=== PATIENT | female | born 1955 | race Caucasian/White ===

== ENCOUNTER → 2019-12-12 | Outpatient (CLI) | payer OTHER ==
[~2019-12-12] MED LIST: HCTZ 25MG TAB25 MG PO; NORCO 325 MG-51 TAB PO; NORVASC 5MG5 MG/TAB PO; PREVACID 15MG15 M1 PO; PRINIVIL20 MG PO; SYNTHROID0.05 MG/TA PO
== END ==
LOC: MC.RAD 11-10 15:30
DX: Z12.31 Encounter for screening mammogram for malignant neoplasm of breast (principal)

== ENCOUNTER 2020-01-03 23:51 | Observation (INO) | payer OTHER, MEDICARE ==
[~2020-01-03] VITALS: Ht 162.6 cm; Wt 115.5 kg
[2020-01-04] VITALS (13 sets, daily range): BP systolic 100–144; BP diastolic 56–86; PULSE 59–86; TEMP 97.5–99.1
[2020-01-04] MEDS ORDERED: NORVASC 5MG5 MG/TAB PO
[2020-01-04] MEDS ORDERED: PRINIVIL20 MG PO
[2020-01-04] MEDS ORDERED: HCTZ 25MG TAB25 MG PO (00:01)
[2020-01-04] MEDS ORDERED: PREVACID 15MG15 M1 PO (00:01)
[2020-01-04] MEDS ORDERED: SYNTHROID0.05 MG/TA PO (00:01)
[2020-01-04 00:25] LABS: BASO # 0.1 (0.0-0.2); BASO % 0.7 % (0.0-2.0); EOS # 0.3 (0.0-0.7); EOS % 2.8 % (0-4.0); GRAN # 6.6 (1.4-6.5); GRAN % 64.4 % (42.2-75.2); HEMATOCRIT 43.9 % (37.0-47.0); LYMPH # 2.7 (1.2-3.4); LYMPH % 26.4 % (20.0-51.0); MEAN CELL VOLUME 95 fl (80.0-100.0); MEAN CORPUSCULAR HEMOGLOBIN 30 pg (27.0-31.0); MEAN CORPUSCULAR HGB CONC 32 g/dl (33.0-37.0); MEAN PLATELET VOLUME 11.9 fl (7.4-10.4); MONO # 0.6 (0.1-0.6); MONO % 5.4 % (1.7-9.3); PLATELET COUNT 252 K/mm3 (130-400); RED BLOOD COUNT 4.64 M/mm3 (4.10-5.30); REDCELL DISTRIBUTION WIDTH-CV 13.7 % (11.5-14.5)
[2020-01-04 00:36] LABS: ALANINE AMINOTRANSFERASE 24 U/L (4-34); ALBUMIN 4.4 gm/dL (3.5-5.0); ALKALINE PHOSPHATASE 119 U/L (50-136); ANION GAP 7 mmol/L (7-16); AST,SGOT 23 U/L (15-37); BILIRUBIN,TOTAL 0.4 mg/dL (0.0-1.0); BLOOD UREA NITROGEN 20 mg/dL (7-17); C-REACTIVE PROTEIN 1.7 mg/dL (0.0-0.9); CALCIUM 9.5 mg/dL (8.4-10.2); CARBON DIOXIDE 30 mmol/L (22-30); CHLORIDE 100 mmol/L (98-107); CREATININE, serum 0.84 (0.52-1.25); GLUCOSE 139 mg/dL (74-106); LIPASE 110 U/L (23-300); SODIUM 136 mmol/L (137-145); TOTAL PROTEIN 7.7 gm/dL (6.4-8.2)
[2020-01-04 00:47] LABS: TROPONIN-I < 0.012 ng/mL (0.000-0.035)
[2020-01-04 00:56] LABS: INR 0.9 (0.8-3.0); PROTHROMBIN TIME 10.3 SECONDS (9.7-12.8)
--- NOTE | 2020-01-04 07:32 | NUR ---
Patient resting in bed. rounded. Plans for OR this afternoon. Nausea & pain medication per request. Will monitor.
--- NOTE | 2020-01-04 09:45 | NUR ---
Patient pain better managed at this time. Belting Cutter assisted with hygiene. COnsent obtained. Davide lindsay.
--- NOTE | 2020-01-04 10:51 | NUR ---
MIR met with the patient to discuss discharge plan. The patient lives in [place] with her life partner, Dieudonne Tesfaye (ph#[phone]). She reports independence with ADLs and does not have any DME. The patient's PCP is Dr. Nuun Cobb and she receives her medications at [facility]. She reports no difficulties obtaining her meds. The patient does not have advanced directives completed. She states that she already has a DPOA-HC form. The patient has two children: Bisi and Denzel. The patient plans to return home with her life partner upon discharge. No additional needs at this time.
--- NOTE | 2020-01-04 14:55 | NUR ---
Patient to Or with Raymon perkins, she had been pre medicated with pre op medication per anethesia.
--- NOTE | 2020-01-04 17:34 | NUR ---
Report from Funmi in the PACU. Patient received post op. Patient very sleepy. Vitals stable on O2. Lap site x3 Bandaids intact. IVf resumed. Scds ble. Will closely monitor.
--- NOTE | 2020-01-04 19:41 | NUR ---
Patient siting up trying to eat dinner. denies nausea at this time. Was up to the bathroom & voided. Vitals stable, but still requires oxygen. Report to Elizabeth NI
--- NOTE | 2020-01-04 22:31 | NUR ---
PATIENT DOING WELL TONIGHT. DENIES PAIN OR NAUSEA AT THIS TIME. ATE HALF OF HER DINNER. X3 ABD LAP SITES CDI WITH BANDAIDS. VSS WITH O2. IVF INFUSING INTO L AC IV WITHOUT ISSUE. NO FURTHER NEEDS AT THIS TIME. WILL CONTINUE TO MONITOR.
[2020-01-05 03:29] VITALS: BP 114/53; PULSE 64; TEMP 98.5
[2020-01-05 08:23] VITALS: BP 109/59; PULSE 81; TEMP 98
[2020-01-05] MEDS ORDERED: NORCO 325 MG-51 TAB PO (08:27)
--- NOTE | 2020-01-05 10:00 | NUR ---
Patient is discharging home. Discharge instructions discussed with patient. No questions verbalized. INT discontinued. Explained the office will call with her follow up appointment. She has a prescription for norco to take to the pharmacy to get fille. No questions verbalized. Copies of discharge instructions sent with patient. All belongings packed up and sent with patient. Patient walked out with Matthias NI.
== END 2020-01-05 10:18 | disposition home or self-care (01) ==
LOC: COL.ER 23:51 → SURG 01-04 02:27
PROVIDERS: Emergency Medicine; ADMIT Surgery
DX: K80.10 Calculus of gallbladder with chronic cholecystitis without obstruction (principal); K44.9 Diaphragmatic hernia without obstruction or gangrene; I10 Essential (primary) hypertension; E03.9 Hypothyroidism, unspecified; Z90.710 Acquired absence of both cervix and uterus; Z88.8 Allergy status to other drugs, medicaments and biological substances; Z79.899 Other long term (current) drug therapy
CPT/HCPCS: G0378; J0330; J2270; J2405; J2543; J2704; J2765; J3010; J7030; J7120; Q9967

== ENCOUNTER 2020-09-07 15:13 | Outpatient (CLI) | payer MEDICARE ==
[~2020-09-07] VITALS: Ht 162.6 cm; Wt 117.4 kg
[2020-09-07 15:58] VITALS: BP 138/83; PULSE 76; TEMP 97.8
== END 2020-09-07 16:31 | disposition home or self-care (01) ==
LOC: EUO 15:13
DX: M81.0 Age-related osteoporosis without current pathological fracture (principal)
CPT/HCPCS: J0897

== ENCOUNTER 2021-03-20 09:35 | Outpatient (CLI) | payer MEDICARE ==
[~2021-03-20] VITALS: Ht 162.6 cm; Wt 112.0 kg
[2021-03-20 09:53] VITALS: BP 139/82; PULSE 66; TEMP 98
== END 2021-03-20 10:30 | disposition home or self-care (01) ==
LOC: EUO 09:35
DX: M81.0 Age-related osteoporosis without current pathological fracture (principal)
CPT/HCPCS: J0897

== ENCOUNTER → 2021-04-23 | Outpatient (CLI) | payer MEDICARE | LOC: COL.VAS 13:11 | DX: I65.23 Occlusion and stenosis of bilateral carotid arteries (principal); I70.90 Unspecified atherosclerosis ==

== ENCOUNTER 2021-10-02 13:29 | Outpatient (CLI) | payer MEDICARE ==
[~2021-10-02] VITALS: Ht 162.6 cm; Wt 113.1 kg
[2021-10-02 13:57] VITALS: BP 126/83; PULSE 78; TEMP 98.6
== END 2021-10-02 16:01 ==
LOC: EUO 13:29
DX: M81.0 Age-related osteoporosis without current pathological fracture (principal)
CPT/HCPCS: J0897

== ENCOUNTER 2022-03-25 12:23 | Emergency (ER) | payer MEDICARE ==
[~2022-03-25] VITALS: Ht 165.1 cm; Wt 108.6 kg
[~2022-03-25 12:23] MED LIST changes: -SYNTHROID0.05 MG/TA PO; +SYNTHROID0.075 MG/T PO
[2022-03-25 12:38] VITALS: TEMP 98.3
[2022-03-25 13:06] LABS: COLLECTION METHOD CLEAN CATCH
[2022-03-25 13:10] LABS: BASO % 0.3 % (0.0-2.0); EOS # 0.1 K/mm3 (0.0-0.7); EOS % 0.8 % (0.0-4.0); GRAN # 9.8 K/mm3 (1.4-6.5); GRAN % 80.5 % (42.2-75.2); HEMATOCRIT 44.9 % (37.0-47.0); LYMPH # 1.5 K/mm3 (1.2-3.4); LYMPH % 12.1 % (20.0-51.0); MEAN CELL VOLUME 91 fl (80.0-100.0); MEAN CORPUSCULAR HEMOGLOBIN 30 pg (27-31); MEAN CORPUSCULAR HGB CONC 33 g/dl (33.0-37.0); MEAN PLATELET VOLUME 11.8 fl (7.4-10.4); MONO # 0.7 K/mm3 (0.1-0.6); PLATELET COUNT 244 K/mm3 (130-400); RED BLOOD COUNT 4.95 M/mm3 (4.10-5.30); REDCELL DISTRIBUTION WIDTH-CV 13.3 % (11.5-14.5)
[2022-03-25 13:14] LABS: SQUAMOUS EPITHELIAL 0-2 /hpf (0-10); URINE BACTERIA Rare /hpf (NONE SEEN); URINE RBC None Seen /hpf (0-2)
[2022-03-25 13:17] LABS: PH 6 (5-8); URINE APPEARANCE Clear (CLEAR/HAZY); URINE COLOR Yellow (YELLOW); URINE GLUCOSE Negative (NEGATIVE); URINE PROTEIN(semi-quant) Negative (NEGATIVE); URINE UROBILINOGEN Negative (NEGATIVE)
[2022-03-25 13:18] LABS: URINE BLOOD Negative (NEGATIVE); URINE KETONE Trace (NEGATIVE); URINE NITRATE Negative (NEGATIVE)
[2022-03-25 13:26] LABS: BILIRUBIN,TOTAL 0.7 mg/dL (0.2-1.2); C-REACTIVE PROTEIN 6.54 mg/dL (0.00-0.50); CREATININE, serum 0.81 mg/dL (0.57-1.11); POTASSIUM 3.7 mmol/L (3.5-4.5); TOTAL PROTEIN 7.8 gm/dL (6.2-8.1)
[2022-03-25 14:30] VITALS: BP 143/98
[2022-03-25] MEDS ORDERED: FLAGYL500 MG PO (15:10)
[2022-03-25] MEDS ORDERED: CIPRO 500MG TA500 MG PO (15:10)
[2022-03-25] MEDS ORDERED: NORCO 325 MG-51 TAB PO (15:22)
[2022-03-25 15:23] VITALS: PULSE 93
== END 2022-03-25 15:25 | disposition home or self-care (01) ==
LOC: COL.ER 12:23
PROVIDERS: Nurse Practitioner
DX: K57.32 Diverticulitis of large intestine without perforation or abscess without bleeding (principal); Z87.19 Personal history of other diseases of the digestive system
CPT/HCPCS: J2270; J2405; J7030; Q9967

== ENCOUNTER 2022-04-02 13:08 | Outpatient (CLI) | payer MEDICARE ==
[~2022-04-02] VITALS: Ht 165.1 cm; Wt 109.2 kg
[~2022-04-02 13:08] MED LIST changes: +CIPRO 500MG TA500 MG PO; +FLAGYL500 MG PO
[2022-04-02 13:20] VITALS: BP 106/57; PULSE 88; TEMP 97.8
== END 2022-04-02 17:46 | disposition home or self-care (01) ==
LOC: EUO 13:08
DX: M81.0 Age-related osteoporosis without current pathological fracture (principal)
CPT/HCPCS: J0897

== ENCOUNTER 2022-10-09 14:37 | Outpatient (CLI) | payer MEDICARE ==
[~2022-10-09] VITALS: Ht 165.1 cm; Wt 108.9 kg
[2022-10-09 14:53] VITALS: BP 128/83; PULSE 78; TEMP 98.2
== END 2022-10-09 15:05 ==
LOC: EUO 14:37
DX: M81.0 Age-related osteoporosis without current pathological fracture (principal)
CPT/HCPCS: J0897

== ENCOUNTER → 2022-12-04 | Outpatient (CLI) | payer MEDICARE | LOC: COL.RAD 09:22 | DX: R55 Syncope and collapse (principal); I10 Essential (primary) hypertension | CPT/HCPCS: Q9967 ==

== ENCOUNTER → 2023-07-14 | Outpatient (CLI) | payer MEDICARE | LOC: MC.RAD 10:33 | DX: Z12.31 Encounter for screening mammogram for malignant neoplasm of breast (principal) ==

== ENCOUNTER 2023-10-12 14:25 | Outpatient (CLI) | payer MEDICARE ==
[~2023-10-12] VITALS: Ht 165.1 cm; Wt 109.0 kg
[2023-10-12] MEDS ORDERED: Denosumab 60 MG/ML SYRINGE SQ ONE (14:45)
[2023-10-12 14:51] VITALS: BP 134/84; PULSE 88; TEMP 98.3
== END 2023-10-12 15:00 | disposition home or self-care (01) ==
LOC: EUO 14:25
DX: M81.0 Age-related osteoporosis without current pathological fracture (principal)
CPT/HCPCS: J0897

== ENCOUNTER 2024-05-19 15:01 | Outpatient (CLI) | payer MEDICARE ==
[~2024-05-19] VITALS: Ht 165.1 cm; Wt 109.4 kg
[2024-05-19] MEDS ORDERED: Denosumab 60 MG/ML SYRINGE SQ ONE (15:15)
[2024-05-19 15:33] VITALS: BP 122/82; PULSE 77; TEMP 98.5
== END 2024-05-19 16:06 ==
LOC: EUO 15:01
DX: M81.0 Age-related osteoporosis without current pathological fracture (principal)
CPT/HCPCS: J0897